=== PATIENT | male | born 1995 | race Caucasian/White ===

== ENCOUNTER 2018-03-18 18:57 | Emergency (ER) | payer MEDICAID, OTHER ==
[~2018-03-18] VITALS: Ht 162.6 cm; Wt 54.4 kg
[2018-03-18 19:19] VITALS: BP 100/63
== END 2018-03-18 22:24 | disposition home or self-care (01) ==
LOC: ER 19:03
DX: K04.7 Periapical abscess without sinus (principal); F17.210 Nicotine dependence, cigarettes, uncomplicated

== ENCOUNTER 2018-08-15 01:35 | Emergency (ER) | payer MEDICAID, OTHER ==
[~2018-08-15] VITALS: Ht 170.2 cm; Wt 54.4 kg
[2018-08-15 10:50] VITALS: BP 100/72
--- NOTE | 2018-08-15 13:35 | NUR ---
Received referral to see homeless pt. Pt does not want to communicate. He answers his questions by nodding and shaking his head. He does not verbally answer the questions asked. Left pt with [facility] from [facility]. Pt's Homeless voucher was signed and placed into the pt's chart.
== END 2018-08-15 12:14 | disposition home or self-care (01) ==
LOC: ER 01:46
DX: M54.2 Cervicalgia (principal); G89.29 Other chronic pain; F17.210 Nicotine dependence, cigarettes, uncomplicated; F12.90 Cannabis use, unspecified, uncomplicated

== ENCOUNTER 2018-09-05 20:49 | Emergency (ER) | payer MEDICAID ==
[~2018-09-05] VITALS: Ht 165.1 cm; Wt 52.2 kg
[2018-09-05 21:30] VITALS: BP 111/74
== END 2018-09-05 22:30 ==
LOC: ER 20:54
DX: Z02.89 Encounter for other administrative examinations (principal); M54.2 Cervicalgia; G89.29 Other chronic pain; F17.210 Nicotine dependence, cigarettes, uncomplicated; F15.10 Other stimulant abuse, uncomplicated

== ENCOUNTER 2021-10-11 02:55 | Emergency (ER) | payer MEDICAID ==
[~2021-10-11] VITALS: Ht 170.2 cm; Wt 56.8 kg
[2021-10-11 06:25] VITALS: BP 110/73
[2021-10-11] MEDS ORDERED: cefTRIAXone SOD 1,000 MG VL IM ONE (07:30)
[2021-10-11] MEDS ORDERED: LIDOCAINE 1% HCL (LOCAL ANESTH.) INJ 20ML MDV ID ONE (07:45)
[2021-10-11] MEDS ORDERED: CEPH-510 PO (07:51)
[2021-10-11] MEDS ORDERED: ACET-1158 PO (07:51)
== END 2021-10-11 08:11 | disposition home or self-care (01) ==
LOC: ER 02:55
DX: S51.811A Laceration without foreign body of right forearm, initial encounter (principal); F17.210 Nicotine dependence, cigarettes, uncomplicated; F12.10 Cannabis abuse, uncomplicated; F15.10 Other stimulant abuse, uncomplicated; W22.8XXA Striking against or struck by other objects, initial encounter; Y93.89 Activity, other specified; Y92.89 Other specified places as the place of occurrence of the external cause; Y99.8 Other external cause status
CPT/HCPCS: 73090; 96372; 99283; J0696; J2001

== ENCOUNTER 2021-12-09 16:53 | Emergency (ER) | payer MEDICAID ==
[~2021-12-09] VITALS: Ht 170.2 cm; Wt 54.5 kg
[~2021-12-09 16:53] MED LIST: ACET-1158 PO; CEPH-510 PO
[2021-12-09 19:23] VITALS: BP 122/77
[2021-12-10] MEDS ORDERED: CIP03OS RIGHTEYE (11:56)
== END 2021-12-10 00:21 | disposition left against medical advice (07) ==
LOC: EDBD 16:53 → ER 16:53 → EDUNIT# 16:53 → ER 12-10 00:21
DX: H57.11 Ocular pain, right eye (principal); Z53.21 Procedure and treatment not carried out due to patient leaving prior to being seen by health care provider

== ENCOUNTER 2021-12-10 09:44 | Emergency (ER) | payer MEDICAID ==
[~2021-12-10] VITALS: Ht 170.2 cm; Wt 55.0 kg
[2021-12-10 10:26] VITALS: BP 101/64
[2021-12-10] MEDS ORDERED: CIP03OS RIGHTEYE (11:56)
== END 2021-12-10 12:24 | disposition home or self-care (01) ==
LOC: ER 09:44
DX: S05.01XA Injury of conjunctiva and corneal abrasion without foreign body, right eye, initial encounter (principal); H10.31 Unspecified acute conjunctivitis, right eye; F17.210 Nicotine dependence, cigarettes, uncomplicated; F12.10 Cannabis abuse, uncomplicated; F15.10 Other stimulant abuse, uncomplicated; W22.8XXA Striking against or struck by other objects, initial encounter; Y93.89 Activity, other specified; Y92.89 Other specified places as the place of occurrence of the external cause; Y99.8 Other external cause status

== ENCOUNTER 2024-04-14 16:57 | Emergency (ER) | payer MEDICAID ==
[~2024-04-14] VITALS: Ht 160 cm; Wt 55.0 kg
[~2024-04-14 16:57] MED LIST changes: -ACET-1158 PO; +ACET500T58 PO; +CIP03OS RIGHTEYE
[2024-04-14 18:00] VITALS: PULSE 96; RESP 16; O2SAT 97
--- NOTE | 2024-04-14 18:13 | DVH ---
EXAM: CT Cervical Spine Without Intravenous Contrast CLINICAL INDICATION: fall TECHNIQUE: Axial computed tomography images of the cervical spine without intravenous contrast. Thi s CT exam was performed using one or more of the following dose reduction techniques: automated expo sure control, adjustment of the mA and/or kV according to patient size, and/or use of iterative recon struction technique. CONTRAST: RADIATION DOSE: CTDIvol = 19.09 mGy, DLP = 465.38 mGy-cm COMPARISON: None FINDINGS: VERTEBRAE: Degenerative facet arthropathy throughout the cervical spine. No acute fracture. DISCS/SPINAL CANAL/NEURAL FORAMINA: Degenerative disc disease throughout the cervical spine. SOFT TISSUES: Unremarkable. OTHER FINDINGS: . IMPRESSION: 1. No acute fracture. 2. Degenerative changes of the cervical spine as described.
--- NOTE | 2024-04-14 18:15 | DVH ---
EXAM: CT HEAD WITHOUT CONTRAST HISTORY: fall COMPARISON: None TECHNIQUE: Axial images were obtained and reformatted in coronal and sagittal planes. All CT scans at this medical facility are performed using dose modulation techniques as appropriate t o a performed exam including the following: Automated exposure control was utilized; adjustment of th e MA and/or KV according to patient size; and use of iterative reconstruction technique. CT Dose: CTDI volume is 57 mGy. Dose-length product is 10 15 mGy*cm FINDINGS: Supratentorial Region: No evidence for large acute territorial ischemia. No intracranial hemorrhage is noted. Posterior Fossa: No acute abnormality. Brainstem: Unremarkable. Sellar/Suprasellar Region: Unremarkable. Ventricles, Cisterns, Sulci: Age-appropriate. Orbits: Unremarkable. Paranasal Sinuses: Unremarkable. Mastoid Air Cells: Unremarkable. Vasculature: Unremarkable. Bones/Soft Tissues: No acute abnormality. Other: None. IMPRESSION: 1. No acute intracranial process.
[2024-04-14] MEDS: MORPHINE SULFATE 4 MG/ML SYR/VIAL IV ONE (18:18)
[2024-04-14] MEDS: ONDANSETRON HCL 4 MG/2 ML VIAL IV ONE (18:18)
--- NOTE | 2024-04-14 18:22 | DVH ---
INDICATION: fall TECHNIQUE: 4 radiographic views of the left wrist were obtained. COMPARISON: RFOR on DOS: 10/11/21 FINDINGS: Bone density is normal. Patient has a distracted fracture of the waist of the left scaphoid. The gap between the fracture fra gments is approximately 2.5 mm.. IMPRESSION: 1. Distracted fracture of the waist of the scaphoid. Follow-up MRI examination may be appropriate to assess viability of the fracture fragments
--- NOTE | 2024-04-14 19:19 | DVH ---
CLINICAL INDICATION: fall TECHNIQUE: XY R WRIST 3+ VIEW XRAY Comparison: XY L WRIST 3+ VIEW XRAY on DOS: 04/14/24, RFOR on DOS: 10/11/21 FINDINGS: No oSseous or joint abnormality with no fracture or dislocation. Joint spaces are normal. IMPRESSION: No abnormality demonstrated.
[2024-04-14] MEDS ORDERED: IBUP-1455 PO (19:35)
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
[2024-04-14 20:46] VITALS: BP 110/53; TEMP 98.9
[2024-04-14 20:47] VITALS: PULSE 97; RESP 19; O2SAT 97
== END 2024-04-14 21:02 | disposition home or self-care (01) ==
LOC: EDBD 16:57 → ER 16:57
DX: S62.002A Unspecified fracture of navicular [scaphoid] bone of left wrist, initial encounter for closed fracture (principal); S00.83XA Contusion of other part of head, initial encounter; F17.210 Nicotine dependence, cigarettes, uncomplicated; F12.90 Cannabis use, unspecified, uncomplicated; F15.90 Other stimulant use, unspecified, uncomplicated; Z79.899 Other long term (current) drug therapy; X58.XXXA Exposure to other specified factors, initial encounter; Y93.I9 Activity, other involving external motion; Y92.89 Other specified places as the place of occurrence of the external cause; Y99.8 Other external cause status
CPT/HCPCS: 29125; 70450; 72125; 73110; 96374; 96375; 99285; J2270; J2405